=== PATIENT | female | born 1990 | race Caucasian/White ===

== ENCOUNTER 2019-05-25 04:36 | Emergency (ER) | payer OTHER ==
[~2019-05-25] VITALS: Ht 149.9 cm; Wt 49.7 kg
[2019-05-25 07:05] LABS: *AMPHETAMINES SCREEN URINE NEGATIVE (NEGATIVE); *BARBITURATES SCREEN URINE NEGATIVE (NEGATIVE); *BENZODIAZEPINES SCREEN URINE NEGATIVE (NEGATIVE); *COCAINE SCREEN URINE NEGATIVE (NEGATIVE); METHADONE URINE SCREEN NEGATIVE (NEGATIVE)
[2019-05-25 07:06] LABS: CANNABINOID URINE SCREEN NEGATIVE (NEGATIVE); OPIATES URINE SCREEN NEGATIVE (NEGATIVE); PHENCYCLIDINE URINE SCREEN NEGATIVE (NEGATIVE)
[2019-05-25 14:17] VITALS: BP 110/60
== END 2019-05-25 14:18 | disposition home or self-care (01) ==
LOC: ER 04:36
DX: N63.0 Unspecified lump in unspecified breast (principal); F16.10 Hallucinogen abuse, uncomplicated; Z59.0 Homelessness; F32.9 Major depressive disorder, single episode, unspecified; R42 Dizziness and giddiness
CPT/HCPCS: 80305; 81025; 99283